=== PATIENT | male | born 1965 | race Caucasian/White ===

== ENCOUNTER 2018-10-09 08:50 | Day surgery (SDC) | payer MEDICAID ==
[2018-09-20 08:51] VITALS: BMI 23.6
[2018-10-09] MEDS ORDERED: Lidocaine Hydrochloride 0 ML INJ ONE (10:37)
--- NOTE | 2018-10-09 10:45 | PCM.SURG1 ---
Surgeon's Initial Post Op Note - Surgeon's Notes Surgeon: Aldair Butler MD Cigarette Carton Sealer: NONE Type of Anesthesia: Local Pre-Operative Diagnosis: Right thyroid nodule Operative Findings: Complex 1.1 cm right thyroid nodule Post-Operative Diagnosis: Right thyroid nodule Operation Performed: US guided FNA Specimen/Specimens Removed: 25g FNA x 5 passes Estimated Blood Loss: EBL {In ML}: 1 Blood Products Given: N/A Drains Used: No Drains Post-Op Condition: Good Date of Surgery/Procedure: 10/09/18 Time of Surgery/Procedure: 10:40
--- NOTE | 2018-10-09 10:46 | CP.SDSHP ---
Same Day Surgery H & P - History Proposed Procedure: US guided FNA of thyroid nodule Pre-Op Diagnosis: Right thyroid nodule - Allergies Allergies: Allergies No Known Allergies Allergy (Verified 09/20/18 08:52) - Impression Impression: Pt with right thyroid nodule referred for FNA. Plan US guided FNA. Pt. Evaluated Today:Candidate for Anesthesia & Procedure: No Short Stay Discharge - Short Stay Discharge Admitting Diagnosis/Reason for Visit: NONTOXIC SINGLE THYROID NODULE Disposition: HOME/ ROUTINE
--- NOTE | 2018-10-09 11:22 | US ---
PROCEDURE: Date of Procedure: 10/09/2018 PROCEDURE: 1. Ultrasound guided FNA of right thyroid nodule, CPT 86193 2. Ultrasound guidance for FNA, [id number] Medications: 3cc 1% Lidocaine HISTORY: Enlarged right thyroid nodule. TECHNIQUE: Following informed consent and procedure time-out, a limited ultrasound patient's neck confirmed the presence of a 1.1 cm complex right thyroid nodule which is predominantly solid. After the patient's neck was prepped and draped in the usual sterile fashion, the skin was anesthetized with 1% lidocaine. Ultrasound-guided fine needle aspiration was then performed of the dominant right thyroid nodule. A total of 5 passes were made into the nodule with 25 gauge needle under ultrasound guidance. The FNA specimen was sent for routine pathology and genetics . Post biopsy ultrasound showed no hematoma. IMPRESSION: Ultrasound-guided FNA of the dominant right thyroid nodule.
== END 2018-10-09 15:42 | disposition home or self-care (01) ==
LOC: C.SPRAD 08:50
PROVIDERS: ATTEND Radiology Vascular & Interventional Radiology
DX: E04.1 Nontoxic single thyroid nodule (principal)